=== PATIENT | female | born 1990 | race Caucasian/White ===

== ENCOUNTER 2019-09-18 12:58 | Emergency (ER) | payer MEDICAID ==
[~2019-09-18] VITALS: Ht 175.3 cm; Wt 75.0 kg
[2019-09-18] MEDS ORDERED: ZOFRAN ODT8 MG PO (13:30)
[2019-09-18] MEDS ORDERED: AMOXICILLIN875 MG PO ×2 (14:38)
[2019-09-18] MEDS ORDERED: AMOXICILLIN 8751 TAB PO (14:40)
[2019-09-18 16:16] VITALS: BP 119/73; PULSE 104; TEMP 98.3
[2019-09-20] MEDS ORDERED: AMOXICILLIN 50500 MG PO (11:07)
== END 2019-09-18 16:27 ==
LOC: COL.ER 12:58
DX: J02.9 Acute pharyngitis, unspecified (principal); F17.200 Nicotine dependence, unspecified, uncomplicated
CPT/HCPCS: J1100; J1885; J7030